=== PATIENT | male | born 1990 | race African-American/Black ===

== ENCOUNTER 2019-05-11 18:12 | Emergency (ER) | payer OTHER, MEDICARE, MEDICAID ==
[~2019-05-11] VITALS: Ht 172.7 cm; Wt 86.2 kg
[~2019-05-11 18:12] MED LIST: INVEGA3 MG PO; ZYPREXA10 MG ORAL
[2019-05-11 18:15] VITALS: BP 138/88
--- NOTE | 2019-05-11 18:15 | NUR ---
ED Nurse Note: Patient BIBA d/t fall 1 hour prior. Patient states he fell on his bottom, but has left rib pain afterward. Patient denies LOC. Patient AxO x 4, no s/s of acute distress.
--- NOTE | 2019-05-11 18:24 | Emergency Room Report ---
History of Present Illness General Chief Complaint: Pain Present Illness HPI 29-year-old male with history of bipolar disorder brought in by paramedics due to fall and injuring left-sided ribs. When I entered the room he does complain of a 3 out of 10 left-sided rib pain however no distress, also is concerned about the multiple miguel placement that he has had in his ankles and elbows over years and wants me to make sure whether it is time for those rods to be taken out. Patient has history of psychosis and also appears to be under the influence of unknown drug. I explained to him that the glass cannot be removed. Denies any head injury or loss of consciousness. Has not taken medication for pain. No distress. Reports that he generally cannot feel his whole body. Allergies: Coded Allergies: OLANZAPINE (Unverified Allergy, Unknown, 05/11/19) Patient History Past Medical History: see triage record Past Surgical History: none Family History: none Immunizations: UTD Reviewed Nursing Documentation: PMH: Agreed; PSxH: Agreed Nursing Documentation-PMH Hx Cardiac Problems: No Hx Cancer: No Hx Gastrointestinal Problems: No Hx Neurological Problems: No Review of Systems All Other Systems: negative except mentioned in HPI Physical Exam Vital Signs Date Time Temp Pulse Resp B/P (MAP) Pulse Ox O2 Delivery O2 Flow Rate FiO2 05/11/19 18:02 97.2 90 18 138/88 (105) 99 Room Air Sp02 EP Interpretation: reviewed, normal General Appearance: alert/responsive, no apparent distress, GCS 15, non-toxic Head: atraumatic Eyes: PERRL, lids + conjunctiva normal ENT: normal ENT inspection Neck: normal inspection Respiratory: normal inspection, no rhonchi, no wheezing Cardiovascular: normal inspection, regular rate, rhythm Gastrointestinal: non-tender, no mass Musculoskeletal: gait & station normal, normal ROM, non-tender Neurologic: oriented x3, sensory intact, normal speech Psychiatric: no suicidal/homicidal ideation Skin: normal inspection Lymphatic: normal inspection Medical Decision Making PA Attestation All my diagnosis and treatment plans were reviewed ad discussed with my supervising physician Dr. Mock Diagnostic Impression: Primary Impression: Contusion, chest wall ER Course 29-year-old male with history of bipolar disorder brought in by paramedics due to fall and injuring left-sided ribs. When I entered the room he does complain of a 3 out of 10 left-sided rib pain however no distress, also is concerned about the multiple miguel placement that he has had in his ankles and elbows over years and wants me to make sure whether it is time for those rods to be taken out. Patient has history of psychosis and also appears to be under the influence of unknown drug. I explained to him that the glass cannot be removed. Denies any head injury or loss of consciousness. Has not taken medication for pain. No distress. Reports that he generally cannot feel his whole body. Ddx considered but are not limited to: Rib fracture, pneumothorax, chest contusion Vital signs: are WNL, pt. is afebrile H&PE are most consistent with chest contusion ORDERS: Left-sided rib x-ray +1 view of chest x-ray, lidocaine patch, Tylenol ED INTERVENTIONS: None required at this time. DISCHARGE: At this time pt. is stable for d/c to home. Will provide printed patient care instructions, and any necessary prescriptions. Care plan and follow up instructions have been discussed with the patient prior to discharge. Alternate between icing heating affected area, follow-up with collateral specialist regarding past orthopedic surgeries and miguel placements. If worsening symptoms return to emergency room Chest X-Ray Diagnostic Results Chest X-Ray Diagnostic Results : Chest X-Ray Ordered: Yes # of Views/Limited/Complete: 1 View Indication: Other - Trauma EP Interpretation: Yes Interpretation: no consolidation, no effusion, no pneumothorax Impression: No acute disease Electronically Signed by: Ila Shah PA-C Other X-Ray Diagnostic Results Other X-Ray Diagnostic Results : X-Ray ordered: Left-sided ribs # of Views/Limited Vs Complete: 3 View Indication: Pain EP Interpretation: Yes Interpretation: no dislocation, no soft tissue swelling, no fractures Impression: No acute disease Electronically Signed by: Ila WILLIAMSON Scribe Text FILM RIBS: No evidence of left rib fracture. Last Vital Signs Date Time Temp Pulse Resp B/P (MAP) Pulse Ox O2 Delivery O2 Flow Rate FiO2 05/11/19 18:02 97.2 90 18 138/88 (105) 99 Room Air Disposition: HOME, SELF-CARE Condition: Stable Patient Instructions: Chest Contusion, [id number] Additional Instructions: Take medication as directed, follow-up with your primary care provider, if worsening symptoms return to emergency room. Regarding your miguel placement and elbow anticoagulated follow-up with your collateral specialist. Ila Oliveira May 11, 2019 18:24
--- NOTE | 2019-05-11 19:05 | NUR ---
ED Nurse Note: Report received from ALINE Tobin. Pt is resting in bed, no acute distress noted.
[2019-05-11] MEDS ORDERED: TYLENOL EXTRA500 MG ORAL (19:23)
[2019-05-11] MEDS ORDERED: LIDODERM700 M1 TOPIC (19:23)
[2019-05-11 20:05] VITALS: BP 135/79
--- NOTE | 2019-05-11 20:05 | NUR ---
ER DISCHARGE NOTE: Patient is cleared to be discharged per ERMD, pt is aox4, on room air, with stable vital signs. pt was given dc and prescription instructions, pt was able to verbalize understanding, pt id band removed. pt is able to ambulate with steady gait. pt took all belongings.
--- NOTE | 2019-05-13 09:21 | Diagnostic Imaging Report ---
Indication: Left sided rib pain. Trauma. Findings: 4 views of the left chest wall was obtained for evaluation of the ribs. There is no acute fracture identified. There is no soft tissue swelling demonstrated. The lung is essentially clear. There is no pneumothorax. The costophrenic angle is sharp. Other osseous structures visualized are unremarkable. Impression: Negative left unilateral rib series
== END 2019-05-11 20:05 | disposition home or self-care (01) ==
LOC: EDBD 18:12 → EMR 18:32
DX: S20.219A Contusion of unspecified front wall of thorax, initial encounter (principal); W19.XXXA Unspecified fall, initial encounter; Y92.9 Unspecified place or not applicable; F31.9 Bipolar disorder, unspecified; Z88.8 Allergy status to other drugs, medicaments and biological substances
CPT/HCPCS: 99284